=== PATIENT | female | born 1995 | race Caucasian/White ===

== ENCOUNTER → 2018-02-13 | Outpatient (CLI) | payer OTHER | LOC: COL.RAD 14:02 | DX: S73.192A Other sprain of left hip, initial encounter (principal) | CPT/HCPCS: A9585; J3301; Q9967 ==

== ENCOUNTER → 2018-03-13 | Outpatient (CLI) | payer OTHER | LOC: COL.RAD 03-12 08:00 | DX: M25.552 Pain in left hip (principal) | CPT/HCPCS: J3301; Q9967 ==

== ENCOUNTER → 2018-07-05 | Outpatient (CLI) | payer OTHER | LOC: COL.RAD 10:00 | DX: M25.551 Pain in right hip (principal) ==

== ENCOUNTER → 2018-07-16 | Outpatient (CLI) | payer OTHER | LOC: COL.RAD 13:21 | DX: S73.191A Other sprain of right hip, initial encounter (principal); M24.851 Other specific joint derangements of right hip, not elsewhere classified | CPT/HCPCS: A9585; J3301; Q9967 ==

== ENCOUNTER → 2019-02-07 | Outpatient (CLI) | payer OTHER | LOC: COL.RAD 07:45 | DX: M25.551 Pain in right hip (principal) | CPT/HCPCS: J3301; Q9967 ==

== ENCOUNTER 2019-02-24 01:04 | Emergency (ER) | payer OTHER ==
[~2019-02-24] VITALS: Ht 165.1 cm; Wt 59.1 kg
[2019-02-24 01:09] VITALS: BP 125/81; TEMP 97.7
[2019-02-24 01:49] VITALS: PULSE 72
== END 2019-02-24 01:48 | disposition home or self-care (01) ==
LOC: COL.ER 01:04
DX: M25.551 Pain in right hip (principal); M25.552 Pain in left hip

== ENCOUNTER → 2019-06-10 | Outpatient (CLI) | payer OTHER | LOC: COL.RAD 08:57 | DX: M54.16 Radiculopathy, lumbar region (principal) | CPT/HCPCS: J3301; Q9967 ==